=== PATIENT | female | born 1975 | race Two or more races ===

== ENCOUNTER 2018-07-06 15:07 | Day surgery (SDC) | payer OTHER ==
[~2018-07-06] VITALS: Ht 157.5 cm; Wt 59.9 kg
[2018-07-06] MEDS ORDERED: ALDOMET250 MG PO (19:14)
== END 2018-07-06 23:50 | disposition home or self-care (01) ==
LOC: ER 15:07 → O/R 19:06 → SEC-K 19:06 → CIR.AMB 19:08 → EDSTATUS 20:00 → CIR.AMB 23:50 → SEC-K 07-07 08:55 → O/R 07-07 08:55
DX: O03.4 Incomplete spontaneous abortion without complication (principal)